=== PATIENT | female | born 1980 | race Caucasian/White ===

== ENCOUNTER 2020-02-20 04:20 | Emergency (ER) | payer OTHER ==
[~2020-02-20] VITALS: Ht 165.1 cm; Wt 73.5 kg
[2020-02-20] MEDS ORDERED: Norco 5-325 Ta1 EACH PO (04:53)
[2020-02-20] MEDS ORDERED: IBUP800 PO (04:53)
== END 2020-02-20 05:10 | disposition home or self-care (01) ==
LOC: ER 04:20
DX: T23.202A Burn of second degree of left hand, unspecified site, initial encounter (principal); F17.200 Nicotine dependence, unspecified, uncomplicated; Z23 Encounter for immunization; X08.8XXA Exposure to other specified smoke, fire and flames, initial encounter
CPT/HCPCS: 16000; 90471; 90714; 99283-25; A9270; A9270-GY

== ENCOUNTER → 2023-05-22 | Outpatient (CLI) | payer OTHER ==
[~2023-05-22] MED LIST: IBUP800 PO; Norco 5-325 Ta1 EACH PO
[2023-05-23 10:49] LABS: Candida species (DNA Probe) Negative (NEGATIVE); G. vaginalis (DNA Probe) Positive (NEGATIVE); T. vaginalis (DNA Probe) Negative (NEGATIVE)
[2023-05-24 07:09] LABS: CHLAMYDIA TRACHOMATIS, NAA Negative (Negative); HPV 16 Positive (Negative); HPV 18 Negative (Negative); HPV OTHER HR TYPES Negative (Negative)
== END ==
LOC: LAB 17:10 → LAB SHORT 17:10
PROVIDERS: Family Medicine
DX: Z12.4 Encounter for screening for malignant neoplasm of cervix (principal)
CPT/HCPCS: 87480; 87491; 87510; 87591; 87624; 87660; G0145

== ENCOUNTER → 2023-06-19 | Outpatient (CLI) | payer OTHER | END | disposition home or self-care (01) | LOC: LAB SHORT 15:36 → LAB 15:36 | DX: R87.614 Cytologic evidence of malignancy on smear of cervix (principal) | CPT/HCPCS: 88305 ==

== ENCOUNTER → 2023-07-23 | Outpatient (CLI) | payer OTHER | LOC: LAB SHORT 13:01 → LAB 13:01 | DX: D06.7 Carcinoma in situ of other parts of cervix (principal) | CPT/HCPCS: 88305 ==

== ENCOUNTER → 2023-08-15 | Outpatient (CLI) | payer OTHER | END | disposition home or self-care (01) | LOC: LAB 11:04 → LAB SHORT 11:04 | DX: D06.9 Carcinoma in situ of cervix, unspecified (principal) | CPT/HCPCS: 88305 ==

== ENCOUNTER 2023-09-10 06:18 | Day surgery (SDC) | payer OTHER ==
[2023-09-10] VITALS (12 sets, daily range): BP systolic 116–138; BP diastolic 74–95
[~2023-09-10] VITALS: Ht 165 cm; Wt 81.5 kg
[2023-09-10] MEDS ORDERED: ACET500 PO (13:00)
[2023-09-10] MEDS ORDERED: IBUP800 PO (13:00)
[2023-09-10] MEDS ORDERED: SIME80CH PO (13:01)
[2023-09-10] MEDS ORDERED: OXYC5 PO (13:01)
--- NOTE | 2023-09-10 14:53 | NUR ---
POST oP:REPORT RECEIVED FROM PHARMACIST IN CHARGE OWNER, PT TO UNIT AT ABOUT 1000. A/O, VSS, SURGICAL SITES WNL. NO VAGINAL BLEED NOTED. PT UP OOB TO TRY AND VOID. MOVES WELL WITH SBA. PT RATES PAIN 5/10 AT ABD, MEDICATED PER EMAR. DENIES N/V. PT ORIENTED TO ROOM AND ASKED TO USE CALL LIGHT IN NEEDS ANYTHING. PT AT BEDSIDE
--- NOTE | 2023-09-10 14:56 | NUR ---
DISCHARGE: PT VOIDING, AMBULATING, PAIN MANAGED WITH 10MG OXYCODONE. PT REPORTS ALREADY HAS SCRIPTS. TOLERATED LUNCH WITHOUT DIFFICULTLY. DR. JUAN MADE AWARE AND PT OK TO DC. DC PACKET PRINTED AND PT EDUCATED. IV'S DC'D BY HUNTER REEVES. PT LEFT UNIT VIA WHEELCHAIR WITH HUNTER REEVES AT ABOUT 1340
== END 2023-09-10 14:25 | disposition home or self-care (01) ==
LOC: ORSCMMR 06:18 → ORD 07:30 → SURS 10:11 → ORSCMMR 14:25
PROVIDERS: Obstetrics & Gynecology
PROC: 0UT9FZZ Resection of Uterus, Via Natural or Artificial Opening With Percutaneous Endoscopic Assistance (ICD-10-PCS; principal; 2023-09-10 07:30)
PROC: 0UT7FZZ Resection of Bilateral Fallopian Tubes, Via Natural or Artificial Opening With Percutaneous Endoscopic Assistance (ICD-10-PCS; principal; 2023-09-10 07:30)
DX: D06.9 Carcinoma in situ of cervix, unspecified (principal); N92.0 Excessive and frequent menstruation with regular cycle; F17.210 Nicotine dependence, cigarettes, uncomplicated; K21.9 Gastro-esophageal reflux disease without esophagitis
CPT/HCPCS: 86850; 86900; 86901; 88307; A9270; J0690; J1100; J1170; J1885; J2250; J2405; J2704; J3010; J7120